=== PATIENT | female | born 1955 | race Caucasian/White ===

== ENCOUNTER 2018-07-24 16:28 | Emergency (ER) | payer OTHER ==
[~2018-07-24] VITALS: Ht 157.5 cm; Wt 53.5 kg
[2018-07-24] MEDS ORDERED: MEDROLPACK PO (19:41)
[2018-07-24] MEDS ORDERED: ALL DAY ALLERGY10 M3 PO (19:41)
== END 2018-07-24 20:36 | disposition home or self-care (01) ==
LOC: ER 16:28
DX: L30.8 Other specified dermatitis (principal)